=== PATIENT | female | born 1990 | race Caucasian/White ===

== ENCOUNTER → 2024-10-29 11:33 | Outpatient (REF) | payer BC, SELFPAY | LOC: PNTC 11:33 | PROVIDERS: ATTENDING PHYSICIAN Obstetrics & Gynecology | DX: O36.4XX0 Maternal care for intrauterine death, not applicable or unspecified (principal) | CPT/HCPCS: 59025 ==

== ENCOUNTER → 2024-11-06 14:24 | Outpatient (REF) | payer BC, SELFPAY | LOC: PNTC 14:24 | PROVIDERS: ATTENDING PHYSICIAN Obstetrics & Gynecology | DX: O36.5990 Maternal care for other known or suspected poor fetal growth, unspecified trimester, not applicable or unspecified (principal) | CPT/HCPCS: 59025; 76815; 76820 ==

== ENCOUNTER → 2024-11-13 14:22 | Outpatient (REF) | payer BC, SELFPAY | LOC: PNTC 14:22 | PROVIDERS: ATTENDING PHYSICIAN Obstetrics & Gynecology | DX: O36.5910 Maternal care for other known or suspected poor fetal growth, first trimester, not applicable or unspecified (principal) | CPT/HCPCS: 59025; 76816; 76820 ==

== ENCOUNTER 2024-11-17 16:40 | Inpatient (IN) | payer BC, SELFPAY ==
[2024-11-17 16:50] VITALS: BP 106/69; BMI 22.3
[2024-11-17] MEDS: LR 1000 IV ×2 (17:00→20:52)
[2024-11-17 17:22] LABS: % Basophils 0.3 % (0-2); % Eosinophils 0.6 % (0-6); % Immature Granulocytes 1.5 % (0-0.5); % Lymphocytes 19.7 % (20.5-51.1); % Monocytes 10.2 % (1.7-9.3); % Neutrophils 67.7 % (42.2-75.2); Absolute Eosinophils 0.1 10^3/uL (0-0.7); Absolute Immature Granulocytes 0.2 10^3/uL (0-0.05); Absolute Lymphocytes 2.8 10^3/uL (1.2-3.4); Absolute Monocytes 1.5 10^3/uL (0.1-0.6); Absolute Neutrophils 9.7 10^3/uL (1.4-6.5); Hematocrit 37.3 % (37.0-47.0); Hemoglobin 13.3 g/dL (12.0-16.0); Mean Corp Hgb Conc. 35.7 g/dL (33.0-37.0); Mean Corpuscular Hgb 32.4 pg (27.0-31.0); Mean Platelet Volume 11.9 fL (7.4-10.4); Nucleated Red Blood Cells % 0 %; Platelet Count 153 10^3/uL (130-400); Red Cell Dist. Width 12.6 % (11.5-14.5); White Blood Cell Count 14.4 10^3/uL (4.8-10.8)
[2024-11-17] MEDS: PENICILLIN 110 UNITS IV (17:41)
[2024-11-17] MEDS: PITOCIN 30 UNITS/NSS 500 ML IV (19:40)
[2024-11-17] MEDS: FENTANYL/BUPIVACAINE 100 EPIDURAL (21:13)
[2024-11-17] MEDS: SUBLIMAZE 100 MCG EPIDURAL (21:13)
[2024-11-17] MEDS: PENICILLIN 55 UNITS IV (21:45)
[2024-11-18] MEDS: LR 1000 IV ×2 (00:53→05:10)
[2024-11-18] MEDS: PENICILLIN 55 UNITS IV ×2 (02:10→06:19)
[2024-11-18] MEDS: FENTANYL/BUPIVACAINE 100 EPIDURAL (05:03)
[2024-11-18] MEDS: PITOCIN 30 UNITS/NSS 500 ML IV (07:16)
[2024-11-19 04:26] LABS: Hematocrit 39.1 % (37.0-47.0); Hemoglobin 13.6 g/dL (12.0-16.0)
[2024-11-19] MEDS: PRENATAL PLUS 1 TABLET PO (07:50)
[2024-11-19] MEDS: SENOKOT-S 1 TABLET PO (07:50)
== END 2024-11-19 13:37 | disposition home or self-care (01) | DRG 807 ==
LOC: LDRP 16:40
PROVIDERS: ADMITTING PHYSICIAN Student in an Organized Health Care Education/Training Program; ATTENDING PHYSICIAN Obstetrics & Gynecology
PROC: 3E033VJ Introduction of Other Hormone into Peripheral Vein, Percutaneous Approach (ICD-10-PCS; 2024-11-17)
PROC: 10E0XZZ Delivery of Products of Conception, External Approach (ICD-10-PCS; 2024-11-18)
PROC: 10907ZC Drainage of Amniotic Fluid, Therapeutic from Products of Conception, Via Natural or Artificial Opening (ICD-10-PCS; 2024-11-18)
DX: O36.5930 Maternal care for other known or suspected poor fetal growth, third trimester, not applicable or unspecified (principal); Z37.0 Single live birth; Z3A.37 37 weeks gestation of pregnancy; O99.824 Streptococcus B carrier state complicating childbirth
CPT/HCPCS: 88307; 59025; 76815; 76820; 85014; 85018; 85025; 86780; 86850; 86900; 86901